=== PATIENT | male | born 1995 | race Two or more races ===

== ENCOUNTER 2020-07-16 08:57 | Emergency (ER) | payer OTHER ==
[~2020-07-16] VITALS: Ht 175.3 cm; Wt 77.1 kg
[2020-07-16 09:07] VITALS: BP 119/77
[2020-07-16 09:08] VITALS: BP 119/77
[2020-07-16] MEDS ORDERED: GENVOYA TABLET1 EACH PO (09:14)
--- NOTE | 2020-07-16 09:14 | Emergency Room Report ---
History of Present Illness General Chief Complaint: Medication Refill Source: Patient Present Illness HPI 25-year-old male history of HIV, ran out of Genvoya, currently denies any fevers chills chest pain shortness of breath his HIV is alleviated with Genvoya severity is mild aggravated by not taking his medication patient presents for evaluation and treatment Allergies: Coded Allergies: No Known Allergies (Unverified , 07/16/20) COVID-19 Screening Contact w/high risk pt: No Experienced COVID-19 symptoms?: No COVID-19 Testing performed HOT STRIP FINISHER: No Patient History Past Medical History: see triage record Social History: Reports: smoking Reviewed Nursing Documentation: PMH: Agreed; PSxH: Agreed Nursing Documentation-PMH Past Medical History: No History, Except For Review of Systems All Other Systems: negative except mentioned in HPI Physical Exam Vital Signs Date Time Temp Pulse Resp B/P (MAP) Pulse Ox O2 Delivery O2 Flow Rate FiO2 07/16/20 09:07 98.1 99 14 119/77 (91) 98 Room Air General Appearance: well appearing, no apparent distress Head: normocephalic, atraumatic ENT: hearing grossly normal, normal voice Neck: full range of motion, supple Respiratory: no respiratory distress, speaking full sentences Musculoskeletal: gait/station normal Neurologic: alert, normal gait Psychiatric: mood/affect normal Skin: no rash Medical Decision Making Diagnostic Impression: Primary Impression: Encounter for medication refill ER Course Patient with HIV requests a refill of his Genvoya will provide a refill Last Vital Signs Date Time Temp Pulse Resp B/P (MAP) Pulse Ox O2 Delivery O2 Flow Rate FiO2 07/16/20 09:07 98.1 99 14 119/77 (91) 98 Room Air Disposition: HOME, SELF-CARE Condition: Stable Scripts Elviteg/Naheed/Emtric/Tenofo Ala (Genvoya Tablet) 1 Each Tablet 1 EACH PO DAILY, #90 TAB Prov: Benny Gay MD 07/16/20 Referrals: [facility] Patient Instructions: Medicine Refill at the Emergency Department Additional Instructions: The patient was provided with discharge instructions, notified to follow-up with a primary care doctor and or specialist in the next 24-48 hours, and to return to the ED if they have worsening of their symptoms. Please note that this report is being documented using DRAGON technology. This can lead to erroneous entry secondary to incorrect interpretation by the dictating instrument. Benny Gay MD Jul 16, 2020 09:14
== END 2020-07-16 09:17 | disposition home or self-care (01) ==
LOC: EMR 09:10
DX: B20 Human immunodeficiency virus [HIV] disease (principal); Z76.0 Encounter for issue of repeat prescription
CPT/HCPCS: 99282